=== PATIENT | female | born 1940 | race Caucasian/White ===

== ENCOUNTER 2019-05-21 10:39 | Emergency (ER) | payer OTHER ==
[~2019-05-21] VITALS: Ht 160 cm; Wt 44.5 kg
[2019-05-21] MEDS ORDERED: ONDANSETRON ODT4 MG SL (20:53)
[2019-05-21] MEDS ORDERED: PEPCID AC20 MG PO (20:53)
== END 2019-05-21 21:59 | disposition home or self-care (01) ==
LOC: ER 10:39
DX: K57.30 Diverticulosis of large intestine without perforation or abscess without bleeding (principal); R10.84 Generalized abdominal pain

== ENCOUNTER 2024-05-19 10:54 | Emergency (ER) | payer OTHER ==
[~2024-05-19] VITALS: Ht 152.4 cm; Wt 49.9 kg
[~2024-05-19 10:54] MED LIST: ONDANSETRON ODT4 MG SL; PEPCID AC20 MG PO
[2024-05-19] MEDS ORDERED: CANDESARTAN CIL32 MG PO (11:19)
[2024-05-19] MEDS ORDERED: ZEGERID 20 MG1 EACH (11:20)
[2024-05-19] MEDS ORDERED: ZETIA10 MG (11:21)
[2024-05-19] MEDS ORDERED: AMLODIPINE (11:21)
[2024-05-19] MEDS ORDERED: FAMOtidine 10 MG/ML (4ML VIAL) IV STA (12:20)
[2024-05-19] MEDS ORDERED: METOCLOPRAMIDE HCL 5 MG/ML VIAL IV STA (12:22)
[2024-05-19] MEDS ORDERED: METOCLOPRAMIDE HCL 5 MG/ML VIAL ONE (12:48)
[2024-05-19] MEDS ORDERED: FAMOTIDINE/PF 20 MG/2 ML VIAL ONE (12:48)
[2024-05-19 12:55] LABS: HEMOGLOBIN 13.6 g/dL (12.0-15.00); MEAN CELL VOLUME 88.9 fL (80.00-100.00); MEAN CORPUSCULAR HEMOGLOBIN 29.6 pg (27.00-32.0); MEAN CORPUSCULAR HGB CONC 33.3 g/dl (32.0-36.0); PLATELET COUNT 285 K/uL (150-450); RED BLOOD COUNT 4.61 M/uL (4.00-6.00); RED CELL DISTRIBUTION WIDTH 13.5 % (11.5-14.5)
== END 2024-05-19 15:09 | disposition home or self-care (01) ==
LOC: ER 10:54
PROVIDERS: General Practice
DX: K29.70 Gastritis, unspecified, without bleeding (principal); R10.9 Unspecified abdominal pain; I10 Essential (primary) hypertension; Z88.0 Allergy status to penicillin
CPT/HCPCS: 36415; 93005; 96365; 99282; J2765; J3490

== ENCOUNTER 2024-06-25 07:13 | Outpatient (CLI) | payer OTHER ==
[~2024-06-25 07:13] MED LIST changes: +AMLODIPINE; +CANDESARTAN CIL32 MG PO; +ZEGERID 20 MG1 EACH; +ZETIA10 MG
== END 2024-06-25 07:20 | disposition home or self-care (01) ==
LOC: TOM 07:13
PROVIDERS: ATTEND Internal Medicine Gastroenterology
DX: F41.1 Generalized anxiety disorder (principal); K58.9 Irritable bowel syndrome, unspecified; K44.9 Diaphragmatic hernia without obstruction or gangrene; K21.00 Gastro-esophageal reflux disease with esophagitis, without bleeding; D51.1 Vitamin B12 deficiency anemia due to selective vitamin B12 malabsorption with proteinuria; K63.5 Polyp of colon; Z86.0100 Personal history of colon polyps, unspecified; K30 Functional dyspepsia; K59.01 Slow transit constipation; K57.30 Diverticulosis of large intestine without perforation or abscess without bleeding
CPT/HCPCS: 74177; Q9965

== ENCOUNTER 2024-08-05 10:07 | Emergency (ER) | payer OTHER ==
[~2024-08-05] VITALS: Ht 160 cm; Wt 46.7 kg
[2024-08-05 10:25] VITALS: BP 126/78; O2SAT 97
[2024-08-05] MEDS ORDERED: DEXILANT30 MG (10:26)
[2024-08-05 11:23] LABS: HEMATOCRIT 38.5 % (36.0-45.00); HEMOGLOBIN 12.9 g/dL (12.0-15.00); MEAN CELL VOLUME 90.3 fL (80.00-100.00); MEAN CORPUSCULAR HEMOGLOBIN 30.2 pg (27.00-32.0); MEAN CORPUSCULAR HGB CONC 33.4 g/dl (32.0-36.0); PLATELET COUNT 253 K/uL (150-450); RED BLOOD COUNT 4.26 M/uL (4.00-6.00); RED CELL DISTRIBUTION WIDTH 13.7 % (11.5-14.5)
[2024-08-05 11:44] LABS: CALCIUM 10.3 mg/dL (8.5-10.1); CREATININE SERUM 1.09 mg/dL (0.55-1.02); GFR 47.94; POTASSIUM 4.03 mEq/L (3.5-5.1)
[2024-08-05 12:36] LABS: PH,URINE 6.5 (5.0-8.0); URINE APPEARANCE Clear; URINE BILIRRUBIN Negative (NEGATIVE); URINE BLOOD Negative; URINE COLOR Yellow; URINE GLUCOSE Negative (NEGATIVE); URINE KETONE Negative (NEGATIVE); URINE LEUKOCYTE Negative; URINE NITRATE Negative; URINE PROTEIN Negative (NEGATIVE); URINE UROBILINOGEN 0.2 E.U./dl
[2024-08-05 12:40] LABS: URINE BACTERIA 119.6 uL (0.0-1933); URINE EPITHELIAL CELLS 36.5 uL (0.0-38.8); URINE RBC 4.1 uL (0.0-20.8)
[2024-08-05 12:56] LABS: URINE CAST 0.91 uL (0.0-1.40)
[2024-08-05] MEDS ORDERED: CIPROFLOXACIN IN 5 % DEXTROSE 400 MG/200 ML PIGGYBAG IV STA (13:50)
[2024-08-05] MEDS ORDERED: METRONIDAZOLE/SODIUM CHLORIDE 500 MG/100 ML PIGGYBACK IV STA (13:50)
== END 2024-08-05 14:33 | disposition home or self-care (01) ==
LOC: ER 10:08
PROVIDERS: General Practice
DX: K57.32 Diverticulitis of large intestine without perforation or abscess without bleeding (principal); R10.9 Unspecified abdominal pain; R10.2 Pelvic and perineal pain; I10 Essential (primary) hypertension; Z88.0 Allergy status to penicillin
CPT/HCPCS: 36415; 74176; 96365; 99284; J0744; J3490

== ENCOUNTER 2024-08-17 18:20 | Emergency (ER) | payer OTHER ==
[~2024-08-17] VITALS: Ht 160 cm; Wt 45.4 kg
[~2024-08-17 18:20] MED LIST changes: +DEXILANT30 MG
[2024-08-17] MEDS ORDERED: PLAVIX75 MG PO (19:38)
[2024-08-17] MEDS ORDERED: KETOROLAC TROMETHAMINE 60 MG VIAL IM ONE (20:30)
[2024-08-17] MEDS ORDERED: CIPROFLOXACIN IN 5 % DEXTROSE 400 MG/200 ML PIGGYBAG IV ONE (20:30)
[2024-08-17] MEDS ORDERED: FAMOtidine 10 MG/ML (4ML VIAL) IV ONE (20:30)
[2024-08-17] MEDS ORDERED: METRONIDAZOLE/SODIUM CHLORIDE 500 MG/100 ML PIGGYBACK IV ONE (20:30)
[2024-08-17 20:57] LABS: HEMATOCRIT 35.5 % (36.0-45.00); HEMOGLOBIN 12.1 g/dL (12.0-15.00); MEAN CELL VOLUME 89.5 fL (80.00-100.00); MEAN CORPUSCULAR HEMOGLOBIN 30.5 pg (27.00-32.0); PLATELET COUNT 276 K/uL (150-450); RED BLOOD COUNT 3.97 M/uL (4.00-6.00); RED CELL DISTRIBUTION WIDTH 13.5 % (11.5-14.5)
[2024-08-17 21:16] LABS: ALBUMIN 3.5 gm/dL (3.4-5.0); BILIRUBIN TOTAL 0.41 mg/dL (0.3-1.2); CALCIUM 9.8 mg/dL (8.5-10.1); CREATININE SERUM 0.83 mg/dL (0.55-1.02); GFR 65.49; GLOBULINA 3.5 G/DL (2.4-3.5); POTASSIUM 3.95 mEq/L (3.5-5.1)
[2024-08-17 21:45] LABS: URINE APPEARANCE Clear; URINE BILIRRUBIN Negative (NEGATIVE); URINE BLOOD Negative; URINE COLOR Yellow; URINE GLUCOSE Negative (NEGATIVE); URINE KETONE Negative (NEGATIVE); URINE LEUKOCYTE Negative; URINE NITRATE Negative; URINE PROTEIN Negative (NEGATIVE); URINE UROBILINOGEN 0.2 E.U./dl
[2024-08-17 21:49] LABS: URINE EPITHELIAL CELLS 26.9 uL (0.0-38.8); URINE WBC 3.6 uL (0.0-23.2)
[2024-08-17] MEDS ORDERED: DOCUSATE CALCIUM 240 MG CAPSULE PO ONE (23:45)
[2024-08-17] MEDS ORDERED: MINERAL OIL 30 ML BLIST.PACK PO ONE (23:45)
[2024-08-17] MEDS ORDERED: MAGNESIUM HYDROXIDE 400 MG/5 ML ML PO ONE (23:45)
[2024-08-18] MEDS ORDERED: HYOSCYAMINE SULFATE 0.125 MG TAB.SUBL SL ONE (01:00)
== END 2024-08-18 09:51 | disposition home or self-care (01) ==
LOC: ER 18:22
PROVIDERS: General Practice
DX: K57.30 Diverticulosis of large intestine without perforation or abscess without bleeding (principal); K59.00 Constipation, unspecified; Z88.0 Allergy status to penicillin
CPT/HCPCS: 36415; 74177; 96365; 99284; J0744; J1885; J3490; Q9965

== ENCOUNTER 2024-09-15 11:38 | Emergency (ER) | payer OTHER ==
[~2024-09-15] VITALS: Ht 160 cm; Wt 46.3 kg
[~2024-09-15 11:38] MED LIST changes: +PLAVIX75 MG PO
[2024-09-15 12:28] VITALS: BP 120/70; O2SAT 100
[2024-09-15] MEDS ORDERED: [UNRECOGNIZED DRUG - OTHER] (12:33)
[2024-09-15] MEDS ORDERED: FAMOtidine 10 MG/ML (4ML VIAL) IV STA (13:00)
[2024-09-15] MEDS ORDERED: 0.9 % SODIUM CHLORIDE 1,000 ML IV STA (13:00)
[2024-09-15] MEDS ORDERED: FAMOTIDINE/PF 20 MG/2 ML VIAL ONE (13:18)
[2024-09-15] MEDS ORDERED: BARIUM SULFATE 450 ML ORAL.SUSP PO ONE (14:36)
[2024-09-15 14:38] LABS: HEMATOCRIT 37.8 % (36.0-45.00); HEMOGLOBIN 13.1 g/dL (12.0-15.00); MEAN CELL VOLUME 89.8 fL (80.00-100.00); MEAN CORPUSCULAR HGB CONC 34.6 g/dl (32.0-36.0); PLATELET COUNT 322 K/uL (150-450); RED BLOOD COUNT 4.21 M/uL (4.00-6.00); RED CELL DISTRIBUTION WIDTH 13.6 % (11.5-14.5)
[2024-09-15 14:50] LABS: BILIRUBIN TOTAL 0.41 mg/dL (0.3-1.2); BILIRUBIN,CONJUGATED 0.12 mg/dL (0.0-0.2); BILIRUBIN,UNCONJUGATED 0.29 mg/dL (0.0-0.6); CALCIUM 10.4 mg/dL (8.5-10.1); CREATININE SERUM 1.04 mg/dL (0.55-1.02); GFR 50.48; POTASSIUM 4.38 mEq/L (3.5-5.1)
[2024-09-15 15:18] LABS: PH,URINE 6.5 (5.0-8.0); URINE APPEARANCE Cloudy; URINE BILIRRUBIN Negative (NEGATIVE); URINE BLOOD Negative; URINE COLOR Yellow; URINE GLUCOSE Negative (NEGATIVE); URINE KETONE Negative (NEGATIVE); URINE LEUKOCYTE Negative; URINE NITRATE Negative; URINE PROTEIN Negative (NEGATIVE); URINE UROBILINOGEN 0.2 E.U./dl
[2024-09-15 15:22] LABS: URINE EPITHELIAL CELLS 15.6 uL (0.0-38.8); URINE RBC 3.6 uL (0.0-20.8); URINE WBC 4.4 uL (0.0-23.2)
[2024-09-15 15:23] LABS: URINE CAST 0.14 uL (0.0-1.40)
[2024-09-15] MEDS ORDERED: PEPCID AC20 MG PO (18:04)
[2024-09-15] MEDS ORDERED: BACTRIM DS TAB1 EACH PO (18:04)
[2024-09-15] MEDS ORDERED: TAMS0.4C PO (18:04)
[2024-09-15] MEDS ORDERED: KETO10TA2 PO (18:04)
[2024-09-15] MEDS ORDERED: QUESTRAN POWDE378 GM PO (18:14)
== END 2024-09-15 18:27 | disposition home or self-care (01) ==
LOC: ER 11:40
PROVIDERS: General Practice
DX: N20.0 Calculus of kidney (principal); R10.9 Unspecified abdominal pain; I10 Essential (primary) hypertension; Z88.0 Allergy status to penicillin
CPT/HCPCS: 36415; 74177; 96365; 96366; 99284; J3490; J7030; Q9965